=== PATIENT | female | born 1960 | race Caucasian/White ===

== ENCOUNTER 2019-10-15 07:50 | Outpatient (CLI) | payer MEDICARE, MEDICAID ==
[~2019-10-15] VITALS: Ht 182.9 cm; Wt 132.0 kg
[2019-10-15] VITALS (9 sets, daily range): BP systolic 145–175; BP diastolic 71–91
[2019-10-15] MEDS ORDERED: nitroGLYCERIN 0.4mg SUBLingual tab SL PRN (10:05)
[2019-10-15] MEDS ORDERED: regadenoson 0.4mg/5ml syringe IV PRN (10:05)
[2019-10-15] MEDS ORDERED: aminophylline 250mg/10ml inj. IV PRN (10:05)
== END 2019-10-15 23:59 | disposition home or self-care (01) ==
LOC: RAD 07:50
PROVIDERS: ATTEND Nurse Practitioner Family
DX: Z01.818 Encounter for other preprocedural examination (principal); I34.0 Nonrheumatic mitral (valve) insufficiency; R94.31 Abnormal electrocardiogram [ECG] [EKG]; I11.9 Hypertensive heart disease without heart failure
CPT/HCPCS: 78452; 93017; 93306; A9500; J0280; J2785

== ENCOUNTER 2023-03-23 16:19 | Emergency (ER) | payer MEDICARE, MEDICAID ==
[~2023-03-23] VITALS: Ht 170.2 cm; Wt 109.1 kg
--- NOTE | 2023-03-23 17:55 | NUR ---
MOVIE ACTOR ASSESSMENT REVIEWED BY ELIO KEATING RN; APPROVED
[2023-03-23] MEDS ORDERED: ipratropium/albuterol 3ml nebule NEB ONE (18:35)
[2023-03-23 18:59] VITALS: PULSE 66; RESP 20
[2023-03-23 19:09] VITALS: PULSE 67; RESP 18
[2023-03-23 19:32] VITALS: BP 148/78; PULSE 68; RESP 18; TEMP 98.8; O2SAT 98
== END 2023-03-23 19:39 | disposition home or self-care (01) ==
LOC: ER 16:19
DX: S90.31XA Contusion of right foot, initial encounter (principal); J20.9 Acute bronchitis, unspecified; I51.7 Cardiomegaly; X58.XXXA Exposure to other specified factors, initial encounter; Y93.89 Activity, other specified; Y92.89 Other specified places as the place of occurrence of the external cause; Y99.8 Other external cause status
CPT/HCPCS: 71045; 73630; 94640; 94760; 99284